=== PATIENT | male | born 1955 | race Caucasian/White ===

== ENCOUNTER 2022-12-14 03:11 | Emergency (ER) | payer OTHER ==
[~2022-12-14] VITALS: Ht 180.3 cm; Wt 72.6 kg
[2022-12-14 03:13] VITALS: BP 130/90
--- NOTE | 2022-12-14 03:15 | NUR ---
PT [facility]. TAKEN TO BED 8
--- NOTE | 2022-12-14 03:55 | NUR ---
PT TAKEN TO CT
--- NOTE | 2022-12-14 03:56 | NUR ---
PT TO CT
[2022-12-14] MEDS ORDERED: KETOROLAC 15 MG/ML VIAL IM ONE (04:10)
[2022-12-14 04:13] LABS: APPEARANCE,URINE CLEAR (CLEAR); BILIRUBIN,URINE NEGATIVE (NEGATIVE); BLOOD, URINE NEGATIVE (NEGATIVE); COLOR,URINE YELLOW (YELLOW); LEUKOCYTE ESTERASE ,URINE NEGATIVE (NEGATIVE); NITRITE, URINE NEGATIVE (NEGATIVE); UGLUCOSE NEGATIVE (NEGATIVE)
[2022-12-14] MEDS ORDERED: NACL 0.9% 1,000 ML IV ONE (04:15)
--- NOTE | 2022-12-14 04:17 | NUR ---
URINE AND BLOOD COLLECTED AND SENT
--- NOTE | 2022-12-14 04:17 | NUR ---
67YR OLD MALE BIB EMS C/O TESTICULAR PAIN /ABD PAIN/CP. PT STATES TESTICULAR PAIN HAS BEEN [id number] WORSE TODAY. RADIATES TO LOWER ABD TO MID CHEST. PT IS SOB. SP02 94% 2L. PT IS A SMOKER. 10/10 SHARP PAIN LEVEL. DENIES V/D. ON BEDSIDE CARDIAC MONTIOR WITH HOB ELEVATED. RESP EVEN AND UNLABORED. NKDA CVA
[2022-12-14 04:25] LABS: BASOPHILS # (AUTO) 0.1 K/uL (0.00-0.22); BASOPHILS % (AUTO) 0.8 % (0.0-2.0); EOSINOPHILS # (AUTO) 0.1 K/uL (0-0.4); EOSINOPHILS % (AUTO) 1.2 % (0.0-4.0); HEMATOCRIT 48.4 % (36-52); HEMOGLOBIN 16.6 g/dL (12.0-18.0); LYMPHOCYTES # (AUTO) 1.6 K/uL (2.0-11.5); LYMPHOCYTES % (AUTO) 16.8 % (20.5-51.1); MEAN CORPUSCULAR HEMOGLOBIN 34 pg (27-31); MEAN CORPUSCULAR HGB CONC 34 g/dL (33-37); MEAN CORPUSCULAR VOLUME 98.4 fL (80-94); MONOCYTES # (AUTO) 0.4 K/uL (0.8-1.0); MONOCYTES % (AUTO) 4.1 % (1.7-9.3); NEUTROPHILS # (AUTO) 7.4 K/uL (1.8-7.7); NEUTROPHILS % (AUTO) 77.1 % (42.2-75.2); PLATELET COUNT (AUTO) 297 K/uL (140-450); RED BLOOD CELL COUNT(AUTO) 4.92 MIL/uL (4.20-6.10); WHITE BLOOD COUNT (AUTO) 9.6 K/uL (4.8-10.8)
[2022-12-14 04:43] LABS: ALBUMIN 3.6 g/dL (3.4-5.0); CARBON DIOXIDE 28.4 mmol/L (21-32); CREATININE 0.9 mg/dL (0.6-1.3); POTASSIUM 4.4 mmol/L (3.5-5.1); TOTAL BILIRUBIN 0.4 mg/dL (0.0-1.0)
[2022-12-14] MEDS ORDERED: MORPHINE SULFATE 4 MG/ML SYR IVP ONE (06:05)
--- NOTE | 2022-12-14 06:20 | NUR ---
PT UP TO BATHROOM WITH STEADY GAIT. PT PAIN LEVEL 7/10. 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
[2022-12-14] MEDS ORDERED: ONDA-188 PO (08:13)
[2022-12-14] MEDS ORDERED: MAG355OR2 PO (08:13)
[2022-12-14] MEDS ORDERED: IBUP-1842 PO (08:13)
[2022-12-14] MEDS ORDERED: AMOX1TAB8 PO (08:13)
[2022-12-14] MEDS ORDERED: ACET-8905 PO (08:14)
[2022-12-14 08:45] VITALS: BP 148/86
--- NOTE | 2022-12-14 08:47 | NUR ---
Patient discharged with v/s stable. Written and verbal after care instructions given and explained. Patient alert, oriented and verbalized understanding of instructions. Ambulatory with to home. All questions addressed prior to discharge. ID band removed. Patient advised to follow up with PMD. Rx of ZOFRAN,HYDROCODONE, MOTRIN, MAALOX given. Patient educated on indication of medication including possible reaction and side effects. Opportunity to ask questions provided and answered.
--- NOTE | 2022-12-14 08:47 | NUR ---
The patient's care was reviewed and supervised by [facility] ED, RN.
== END 2022-12-14 08:47 | disposition home or self-care (01) ==
LOC: MED 03:11
DX: R10.84 Generalized abdominal pain (principal); F17.290 Nicotine dependence, other tobacco product, uncomplicated; F12.90 Cannabis use, unspecified, uncomplicated
CPT/HCPCS: 36415; 74176; 80053; 81003; 83690; 85025; 93005; 96361; 96372; 96374; 99285; J1885; J2270; J7030

== ENCOUNTER 2023-04-18 12:26 | Emergency (ER) | payer OTHER ==
[~2023-04-18] VITALS: Ht 180.3 cm; Wt 72.6 kg
[~2023-04-18 12:26] MED LIST: ACET-8905 PO; AMOX1TAB8 PO; IBUP-1842 PO; MAG355OR2 PO; ONDA-188 PO
[2023-04-18 12:45] VITALS: BP 135/76; PULSE 63; RESP 16; TEMP 98.6; O2SAT 95
[2023-04-18 13:27] LABS: APPEARANCE,URINE CLEAR (CLEAR); BILIRUBIN,URINE 2+ (NEGATIVE); BLOOD, URINE NEGATIVE (NEGATIVE); COLOR,URINE YELLOW (YELLOW); LEUKOCYTE ESTERASE ,URINE NEGATIVE (NEGATIVE); NITRITE, URINE NEGATIVE (NEGATIVE); PROTEIN,URINE 1+ (NEGATIVE); UGLUCOSE NEGATIVE (NEGATIVE)
[2023-04-18 13:46] LABS: BACTERIA,URINE FEW /HPF (None Seen); ICTOTEST NEGATIVE (NEGATIVE); MUCUS,URINE None Seen /LPF (None Seen); RBC,URINE 0-5 /HPF (0-5); SQUAMOUS EPITHELIAL CELL,UR 0-3 (FEW) /LPF (0-3 (FEW)); WBC,URINE 0-5 /HPF (0-5)
[2023-04-18 13:47] LABS: TRICHOMONAS,URINE None Seen /HPF (None Seen); WHITE BLOOD CELL CASTS,URINE None Seen /LPF (None Seen); YEAST,URINE Moderate /HPF (None Seen)
[2023-04-18] MEDS ORDERED: FLUC100T8 PO (14:41)
== END 2023-04-18 15:52 | disposition home or self-care (01) ==
LOC: MED 12:26
DX: N39.0 Urinary tract infection, site not specified (principal); Z79.899 Other long term (current) drug therapy; Z79.1 Long term (current) use of non-steroidal anti-inflammatories (NSAID); Z79.2 Long term (current) use of antibiotics
CPT/HCPCS: 81001; 87086; 87491; 99283